=== PATIENT | male | born 1970 | race African-American/Black ===

== ENCOUNTER 2018-06-14 08:03 | Inpatient (IN) ==
[2018-06-14] MEDS ORDERED: CEFTAROLINE 600 MG in SODIUM CHLORIDE 0.9% 100 ML IV STA (08:21)
[2018-06-14 09:40] LABS: Basophils % 0.1 % (0.0-0.8); Eosinophils % 0.1 % (0.00-10.9); Hemoglobin 14.3 GM/DL (14.0-18.0); Immature Granulocytes % 0.5 %; Immature Granulocytes Absolute 0.06 #; Lymphocytes # 1.3 10*3/uL (1.4-4.0); Lymphocytes % 11.2 % (21.2-54.2); Mean Corpuscular HGB Conc 32.5 GM/DL (32-36); Mean Corpuscular Hemoglobin 30 PG (27-34); Mean Corpuscular Volume 92.1 FL (87-102); Monocytes # 0.7 10*3/uL (0.11-0.8); Monocytes % 5.6 % (1.7-12.7); Neutrophils # 9.8 10*3/uL (1.4-7.4); Neutrophils % 82.5 % (38.7-73.9); Platelet Count 305 T/CUMM (130-400); Red Blood Count 4.78 MC/CUMM (3.8-5.5); Red Cell Distribution Width 13.1 % (9.3-17.3); White Blood Count 11.9 T/CUMM (4-12)
[2018-06-14 09:54] LABS: Apearance,Urine CLEAR (Clear); Bilirubin,Urine Negative (Negative); Blood, Urine Negative (Negative); Glucose,Urine (UA) Negative (Negative); Ketones,Urine Negative (Negative); Mucus,Urine Occasional /LPF (Occasional); Nitrite,Urine Negative (Negative); Protein,Urine Negative; RBC,Urine 1 /HPF (0-4); Squamous Epithelial Cell,Urine Occasional /HPF (0-10); Urine Color Yellow (Yellow); Urine Specific Gravity 1.016 (1.001-1.035); Urine Urobilinogen < 2.0 EU/DL (0.2-1.0); WBC,Urine 2 /HPF (0-6)
[2018-06-14 09:59] LABS: Albumin 3.7 G/DL (3.4-5.0); Bilirubin,Total 0.6 MG/DL (0.2-1.0); Calcium 9.5 MG/DL (8.5-10.1); Osmolality,Calculated 267.2 MOS/KG (273-304); Potassium 3.7 MMOL/L (3.5-5.1); Total Protein 8.4 G/DL (6.4-8.3)
[2018-06-14] MEDS ORDERED: HYDROmorphone 2 MG/1 ML VIAL ONE (11:23)
[2018-06-14] MEDS ORDERED: ONDANSETRON 4 MG/2 ML VIAL ONE (11:23)
[2018-06-14] MEDS ORDERED: HYDROmorphone 2 MG/1 ML VIAL IV STA (11:25)
[2018-06-14] MEDS ORDERED: ONDANSETRON 4 MG/2 ML VIAL IV STA (11:25)
[2018-06-14] MEDS ORDERED: ONDANSETRON 4 MG/2 ML VIAL IV PRN (11:30)
[2018-06-14] MEDS ORDERED: DEXTROSE 50% 25 GM/50 ML VIAL IV PRN (13:04)
[2018-06-14] MEDS ORDERED: GLUCAGON 1 MG VIAL IM PRN (13:04)
[2018-06-14] MEDS: INSULIN LISPRO 100 UNIT/ML SUBCUT SCH ×2 (17:31→22:46)
[2018-06-14] MEDS: ACETAMINOPHEN 325 MG TABLET PO PRN (22:45)
[2018-06-14] MEDS: CEFTAROLINE 600 MG in SODIUM CHLORIDE 0.9% 100 ML IV SCH (22:46)
[2018-06-15 04:48] LABS: Basophils % 0.1 % (0.0-0.8); Eosinophils % 0.4 % (0.00-10.9); Hematocrit 37.7 VOL% (42.0-52.0); Immature Granulocytes % 0.6 %; Immature Granulocytes Absolute 0.06 #; Lymphocytes % 19.3 % (21.2-54.2); Mean Corpuscular HGB Conc 32.4 GM/DL (32-36); Mean Corpuscular Hemoglobin 30 PG (27-34); Mean Corpuscular Volume 93.5 FL (87-102); Mean Platelet Volume 10.3 FL (9.6-12.0); Monocytes % 9.3 % (1.7-12.7); Neutrophils # 7.2 10*3/uL (1.4-7.4); Neutrophils % 70.3 % (38.7-73.9); Platelet Count 288 T/CUMM (130-400); Red Blood Count 4.03 MC/CUMM (3.8-5.5); Red Cell Distribution Width 13.1 % (9.3-17.3); White Blood Count 10.2 T/CUMM (4-12)
[2018-06-15 04:49] LABS: Hemoglobin 12.2 GM/DL (14.0-18.0)
[2018-06-15 04:55] LABS: Osmolality,Calculated 274.8 MOS/KG (273-304); Potassium 3.9 MMOL/L (3.5-5.1); Risk Ratio 3.75; Thyroid Stimulating Hormone 0.523 uIU/ml (0.358-3.74)
[2018-06-15] MEDS: ACETAMINOPHEN 325 MG TABLET PO PRN (08:27)
[2018-06-15] MEDS: PANTOPRAZOLE 40 MG TABLET PO SCH (09:24)
[2018-06-15] MEDS: LOSARTAN 50 MG TABLET PO SCH (09:24)
[2018-06-15] MEDS: CHLORTHALIDONE 25 MG TABLET PO SCH (09:25)
[2018-06-15] MEDS: CEFTAROLINE 600 MG in SODIUM CHLORIDE 0.9% 100 ML IV SCH ×2 (09:27→22:25)
[2018-06-15] MEDS: INSULIN LISPRO 100 UNIT/ML SUBCUT SCH ×4 (11:35→22:24)
[2018-06-16 07:00] LABS: Basophils % 0.1 % (0.0-0.8); Eosinophils % 0.2 % (0.00-10.9); Hematocrit 39.3 VOL% (42.0-52.0); Hemoglobin 12.6 GM/DL (14.0-18.0); Immature Granulocytes % 0.4 %; Immature Granulocytes Absolute 0.04 #; Lymphocytes # 1.8 10*3/uL (1.4-4.0); Lymphocytes % 18.3 % (21.2-54.2); Mean Corpuscular HGB Conc 32.1 GM/DL (32-36); Mean Corpuscular Hemoglobin 30 PG (27-34); Mean Corpuscular Volume 93.6 FL (87-102); Mean Platelet Volume 10.4 FL (9.6-12.0); Neutrophils # 7.1 10*3/uL (1.4-7.4); Platelet Count 291 T/CUMM (130-400); Red Cell Distribution Width 13.3 % (9.3-17.3); White Blood Count 10.1 T/CUMM (4-12)
[2018-06-16 07:52] LABS: Osmolality,Calculated 272.8 MOS/KG (273-304)
[2018-06-16] MEDS: INSULIN LISPRO 100 UNIT/ML SUBCUT SCH ×4 (08:47→22:06)
[2018-06-16] MEDS: CHLORTHALIDONE 25 MG TABLET PO SCH (08:50)
[2018-06-16] MEDS: CEFTAROLINE 600 MG in SODIUM CHLORIDE 0.9% 100 ML IV SCH ×2 (08:50→22:06)
[2018-06-16] MEDS: PANTOPRAZOLE 40 MG TABLET PO SCH (08:50)
[2018-06-16] MEDS: LOSARTAN 50 MG TABLET PO SCH (08:50)
[2018-06-17 06:22] LABS: Basophils % 0.1 % (0.0-0.8); Hematocrit 40.2 VOL% (42.0-52.0); Hemoglobin 12.7 GM/DL (14.0-18.0); Immature Granulocytes % 0.5 %; Immature Granulocytes Absolute 0.05 #; Lymphocytes # 1.4 10*3/uL (1.4-4.0); Mean Corpuscular HGB Conc 31.6 GM/DL (32-36); Mean Corpuscular Hemoglobin 29 PG (27-34); Mean Corpuscular Volume 92.8 FL (87-102); Mean Platelet Volume 10.3 FL (9.6-12.0); Monocytes # 0.6 10*3/uL (0.11-0.8); Monocytes % 5.3 % (1.7-12.7); Neutrophils # 8.5 10*3/uL (1.4-7.4); Neutrophils % 81.1 % (38.7-73.9); Platelet Count 307 T/CUMM (130-400); Red Blood Count 4.33 MC/CUMM (3.8-5.5); Red Cell Distribution Width 12.9 % (9.3-17.3); White Blood Count 10.5 T/CUMM (4-12)
[2018-06-17 06:45] LABS: Calcium 9.6 MG/DL (8.5-10.1); Potassium 4.4 MMOL/L (3.5-5.1)
[2018-06-17] MEDS: INSULIN LISPRO 100 UNIT/ML SUBCUT SCH ×4 (08:03→21:06)
[2018-06-17] MEDS: CEFTAROLINE 600 MG in SODIUM CHLORIDE 0.9% 100 ML IV SCH (09:00)
[2018-06-17] MEDS ORDERED: LIDOCAINE 1% 20 ML VIAL ONE (09:33)
[2018-06-17] MEDS ORDERED: SEVOFLURANE 1 UNIT/15 MINUTE INH ONE (10:33)
[2018-06-17] MEDS ORDERED: MIDAZOLAM 2 MG/2 ML VIAL ONE (10:33)
[2018-06-17] MEDS ORDERED: fentaNYL 100 MCG/2 ML VIAL ONE (10:33)
[2018-06-17] MEDS ORDERED: PROPOFOL 200 MG/20 ML VIAL IV ONE (10:33)
[2018-06-17] MEDS ORDERED: HYDROmorphone 2 MG/1 ML VIAL ONE (10:37)
[2018-06-17] MEDS ORDERED: ONDANSETRON 4 MG/2 ML VIAL ONE (10:37)
[2018-06-17] MEDS ORDERED: HYDROmorphone 2 MG/1 ML VIAL IV PRN (10:39)
[2018-06-17] MEDS ORDERED: ONDANSETRON 4 MG/2 ML VIAL IV PRN (10:39)
[2018-06-17] MEDS ORDERED: VANCOMYCIN INJ 1,250 MG in SODIUM CHLORIDE 0.9% 250 ML IV SCH (11:30)
[2018-06-17] MEDS: PANTOPRAZOLE 40 MG TABLET PO SCH (12:24)
[2018-06-17] MEDS: LOSARTAN 50 MG TABLET PO SCH (12:24)
[2018-06-17] MEDS: CHLORTHALIDONE 25 MG TABLET PO SCH (12:24)
[2018-06-17] MEDS: VANCOMYCIN INJ 2,000 MG in SODIUM CHLORIDE 0.9% 500 ML IV SCH (12:30)
[2018-06-17] MEDS: ACETAMINOPHEN 325 MG TABLET PO PRN (15:25)
[2018-06-18] MEDS: VANCOMYCIN INJ 2,000 MG in SODIUM CHLORIDE 0.9% 500 ML IV SCH ×2 (01:27→12:37)
[2018-06-18] MEDS: ACETAMINOPHEN 325 MG TABLET PO PRN ×3 (05:24→18:17)
[2018-06-18 06:09] LABS: Basophils % 0.1 % (0.0-0.8); Eosinophils % 0.2 % (0.00-10.9); Hematocrit 40.4 VOL% (42.0-52.0); Hemoglobin 12.7 GM/DL (14.0-18.0); Immature Granulocytes % 0.4 %; Immature Granulocytes Absolute 0.04 #; Lymphocytes # 1.3 10*3/uL (1.4-4.0); Lymphocytes % 14.2 % (21.2-54.2); Mean Corpuscular HGB Conc 31.4 GM/DL (32-36); Mean Corpuscular Hemoglobin 30 PG (27-34); Mean Corpuscular Volume 94.6 FL (87-102); Mean Platelet Volume 10.2 FL (9.6-12.0); Monocytes # 0.6 10*3/uL (0.11-0.8); Monocytes % 6.4 % (1.7-12.7); Neutrophils # 7.4 10*3/uL (1.4-7.4); Neutrophils % 78.7 % (38.7-73.9); Platelet Count 297 T/CUMM (130-400); Red Blood Count 4.27 MC/CUMM (3.8-5.5); Red Cell Distribution Width 13.2 % (9.3-17.3); White Blood Count 9.4 T/CUMM (4-12)
[2018-06-18 06:28] LABS: Calcium 8.9 MG/DL (8.5-10.1); Osmolality,Calculated 273.8 MOS/KG (273-304)
[2018-06-18] MEDS: INSULIN LISPRO 100 UNIT/ML SUBCUT SCH ×4 (06:47→20:16)
[2018-06-18] MEDS: CHLORTHALIDONE 25 MG TABLET PO SCH (08:25)
[2018-06-18] MEDS: LOSARTAN 50 MG TABLET PO SCH (08:25)
[2018-06-18] MEDS: PANTOPRAZOLE 40 MG TABLET PO SCH (08:26)
[2018-06-18] MEDS: CHLORHEXIDINE 4% SOLN 118 ML BOTTLE TOP SCH (14:46)
[2018-06-19] MEDS: VANCOMYCIN INJ 2,000 MG in SODIUM CHLORIDE 0.9% 500 ML IV SCH (00:09)
[2018-06-19 05:49] LABS: Osmolality,Calculated 274.8 MOS/KG (273-304); Potassium 4.3 MMOL/L (3.5-5.1)
[2018-06-19] MEDS: INSULIN LISPRO 100 UNIT/ML SUBCUT SCH (07:44)
[2018-06-19] MEDS: CHLORTHALIDONE 25 MG TABLET PO SCH (08:19)
[2018-06-19] MEDS: LOSARTAN 50 MG TABLET PO SCH (08:20)
[2018-06-19] MEDS: PANTOPRAZOLE 40 MG TABLET PO SCH (08:20)
[2018-06-19] MEDS: ACETAMINOPHEN 325 MG TABLET PO PRN (08:20)
[2018-06-19] MEDS: CHLORHEXIDINE 4% SOLN 118 ML BOTTLE TOP SCH (09:25)
[2018-06-19 11:23] VITALS: BP 142/81
== END 2018-06-19 11:24 | disposition home or self-care (01) | DRG 571 ==
LOC: N.ED 08:03 → N.EDINP 11:29 → N.5E 11:47
PROVIDERS: ADMIT Internal Medicine; ATTEND Internal Medicine